=== PATIENT | female | born 1985 | race African-American/Black ===

== ENCOUNTER 2018-10-01 15:13 | Emergency (ER) | payer OTHER ==
[~2018-10-01] VITALS: Ht 162.6 cm; Wt 73.6 kg
[2018-10-01 15:47] LABS: BASO % 0.5 % (0.0-1.0); EOS # 0.1 10^3/uL (0.0-0.50); HEMATOCRIT 39.3 % (36.0-47.0); HEMOGLOBIN 13.8 g/dl (12.0-15.5); LYMPH # 2.2 10^3/uL (1.5-4.5); LYMPH % 35.7 % (24.0-44.0); MEAN CORPUSCULAR HEMOGLOBIN 34.8 pg (27.0-33.0); MEAN CORPUSCULAR HGB CONC 35.1 g/dl (32.0-36.5); MEAN CORPUSCULAR VOLUME 99.2 fl (80.0-96.0); MONO # 0.6 10^3/uL (0.0-0.8); MONO % 9.6 % (0.0-5.0); NEUTROPHILS # 3.3 10^3/uL (1.8-7.7); PLATELET COUNT, AUTOMATED 200 10^3/uL (150-450); RED BLOOD COUNT 3.96 10^6/uL (4.00-5.40); WHITE BLOOD COUNT 6.3 10^3/uL (4.0-10.0)
[2018-10-01 16:18] LABS: ALBUMIN 4.1 GM/DL (3.2-5.2); ALT/SGPT 20 U/L (12-78); BILIRUBIN,DIRECT 0.1 MG/DL (0.0-0.2); BILIRUBIN,TOTAL 0.3 MG/DL (0.2-1.0); BLOOD UREA NITROGEN 19 MG/DL (7-18); CALCIUM LEVEL 9.2 MG/DL (8.5-10.1); CARBON DIOXIDE LEVEL 27 MEQ/L (21-32); CHLORIDE LEVEL 107 MEQ/L (98-107); CREATININE FOR GFR 1.08 MG/DL (0.55-1.30); GLOMERULAR FILTRATION RATE > 60.0 (>60); GLUCOSE, FASTING 83 MG/DL (70-100); LIPASE 180 U/L (73-393); POTASSIUM SERUM 4.1 MEQ/L (3.5-5.1); SODIUM LEVEL 140 MEQ/L (136-145); TOTAL PROTEIN 7.4 GM/DL (6.4-8.2)
[2018-10-01] MEDS ORDERED: IBUP1TAB7 PO (16:18)
[2018-10-01] MEDS ORDERED: ISOVUE-370 76% 100ML VIAL (Q9967) As Ordered ONE (17:28)
[2018-10-01] MEDS ORDERED: KETOROLAC 30 MG/ML VIAL (J1885) IV ONE (17:30)
[2018-10-01] MEDS ORDERED: ONDANSETRON 4MG/2ML VIAL (J2405) IV ONE (17:30)
[2018-10-01] MEDS ORDERED: NS 1,000 ML IV ONE (17:45)
--- NOTE | 2018-10-01 18:44 | REPVR ---
EXAM: US Pelvis Complete, Transabdominal EXAM DATE/TIME: 10/01/2018 5:45 PM CLINICAL HISTORY: 33 years old, female; Pelvic pain; Additional info: Right pelvic pain and cramping TECHNIQUE: Imaging protocol: Real-time transabdominal pelvic ultrasound with image documentation. Complete exam. COMPARISON: No relevant prior studies available. FINDINGS: Uterus/cervix: The uterus measures 7.5 x 3.1 x 4.7 cm. Endometrial stripe measures 6 mm. Right adnexa: The right ovary measures 3.8 x 3.1 x 3.2 cm and contains a follicle with a few internal echoes. A follicle in the right ovary contains a few internal echoes and measures approximately 1.9 cm in maximum diameter. Blood flow seen in the right ovary on color Doppler examination. Left adnexa:The left ovary measures 3 x 1.9 x 2.3 cm. Blood flow seen in the left ovary on color Doppler examination. Free fluid: Small amount of free fluid seen in the posterior cul-de-sac. Bladder: Normal. IMPRESSION: 1.9 cm complex follicle in the right ovary which may represent a corpus luteum cyst. This is within the range of normal for a menstruating female. Electronically signed by: Lashawn Velez On 10/01/2018 18:44:14 PM
--- NOTE | 2018-10-01 18:49 | REPVR ---
EXAM: CT Abdomen and Pelvis With Contrast EXAM DATE/TIME: 10/01/2018 5:59 PM CLINICAL HISTORY: 33 years old, female; Abdominal pain; Localized; Right lower quadrant (rlq); Additional info: Rlq pain, RO appendicitis TECHNIQUE: Imaging protocol: Axial computed tomography images of the abdomen and pelvis with intravenous contrast. Coronal and sagittal reformatted images were created and reviewed. Radiation optimization: All CT scans at this facility use at least one of these dose optimization techniques: automated exposure control; mA and/or kV adjustment per patient size (includes targeted exams where dose is matched to clinical indication); or iterative reconstruction. 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 No mass. Gallbladder and bile ducts: Normal. No calcified stones. No ductal dilation. Pancreas: Normal. No ductal dilation. Spleen: Normal. No splenomegaly. Adrenals: Normal. No mass. Kidneys and ureters: 7 mm simple cyst in the midportion of the right kidney posteriorly. Stomach and bowel: Normal. No obstruction. No mucosal thickening. Appendix: The appendix is normal. Intraperitoneal space: Small amount of free fluid noted in the posterior cul-de-sac. Vasculature: Normal. No abdominal aortic aneurysm. Lymph nodes: Normal. No enlarged lymph nodes. Bladder: Unremarkable as visualized. Reproductive: 2.5 cm low-density lesion in the right ovary corresponds to complex cyst seen on pelvic ultrasound. Rim enhancement suggest the presence of a corpus luteum cyst. Bones/joints: No acute fracture. No dislocation. Soft tissues: Unremarkable. IMPRESSION: 1. No acute findings the. The appendix is normal. 2. Corpus luteum cyst suggested in the right ovary. 3. Simple cyst in the right kidney. COMMENT: Consistent with the [employer]'s Incidental Findings Committee Report (J Am Miladys Radiol 2010): Unless the patient's specific circumstances suggest otherwise, any liver lesion 0.5 cm or less, any cystic kidney lesion less than 1.0 cm, and/or any adrenal lesion 1.0 cm or less not otherwise characterized in this report as possessing suspicious or indeterminate imaging features is/are highly likely to be benign and do not require follow-up imaging or biopsy. Electronically signed by: Lashawn Velez On 10/01/2018 18:48:56 PM
[2018-10-01] MEDS ORDERED: ZOFR8TAB24 PO (18:57)
[2018-10-01 19:10] VITALS: BP 130/72
== END 2018-10-01 19:16 | disposition home or self-care (01) ==
LOC: M ED 15:13
DX: N83.01 Follicular cyst of right ovary (principal); N28.1 Cyst of kidney, acquired; R11.10 Vomiting, unspecified; R19.7 Diarrhea, unspecified; Z87.440 Personal history of urinary (tract) infections; F17.210 Nicotine dependence, cigarettes, uncomplicated
CPT/HCPCS: 74177; 76856; 80048; 80076; 81001; 83690; 84702; 85025; 96374; 96375; 99284; J1885; J2405; Q9967

== ENCOUNTER 2019-12-05 14:23 | Emergency (ER) | payer OTHER ==
[~2019-12-05] VITALS: Ht 162.6 cm; Wt 75.0 kg
[~2019-12-05 14:23] MED LIST: IBUP1TAB7 PO; ZOFR8TAB24 PO
[2019-12-05] MEDS ORDERED: CHAN1PAK13 PO (14:39)
--- NOTE | 2019-12-05 15:27 | REPVR ---
PROCEDURE INFORMATION: Exam: XR Chest, 1 View Exam date and time: 12/05/2019 3:05 PM Age: 34 years old Clinical indication: Shortness of breath; Chest pain; Type not specified; Additional info: Chest pain, SOB TECHNIQUE: Imaging protocol: XR of the chest Views: 1 view. COMPARISON: No relevant prior studies available. FINDINGS: Tubes, catheters and devices: External monitoring devices present. Lungs: Unremarkable. No consolidation. Pleural space: Unremarkable. No pleural effusion. No pneumothorax. Heart/Mediastinum: Unremarkable. No cardiomegaly. Bones/joints: Unremarkable. IMPRESSION: No acute findings Electronically signed by: Lashawn Velez On 12/05/2019 15:27:29 PM
[2019-12-05 15:29] LABS: BASO % 0.4 % (0.0-1.0); EOS # 0.1 10^3/uL (0.0-0.5); EOS % 1.1 % (0.0-3.0); HEMATOCRIT 38.3 % (36.0-47.0); HEMOGLOBIN 13.6 g/dl (12.0-15.5); LYMPH # 1.7 10^3/uL (1.5-5.0); LYMPH % 34.9 % (24.0-44.0); MEAN CORPUSCULAR HEMOGLOBIN 34.5 pg (27.0-33.0); MEAN CORPUSCULAR HGB CONC 35.5 g/dl (32.0-36.5); MEAN CORPUSCULAR VOLUME 97.2 fl (80.0-96.0); MONO # 0.5 10^3/uL (0.0-0.8); MONO % 10.1 % (0.0-5.0); NEUTROPHILS # 2.5 10^3/uL (1.5-8.5); NEUTROPHILS % 53.3 % (36.0-66.0); PLATELET COUNT, AUTOMATED 231 10^3/uL (150-450); RED BLOOD COUNT 3.94 10^6/uL (4.00-5.40); WHITE BLOOD COUNT 4.7 10^3/uL (4.0-10.0)
[2019-12-05 15:52] LABS: BLOOD UREA NITROGEN 13 MG/DL (7-18); CALCIUM LEVEL 9.5 MG/DL (8.5-10.1); CARBON DIOXIDE LEVEL 28 MEQ/L (21-32); CHLORIDE LEVEL 108 MEQ/L (98-107); CK-MB VALUE MASS < 1.0 NG/ML (<3.6); CPK CREATINE PHOSPHOKINASE 151 U/L (26-192); CREATININE FOR GFR 0.89 MG/DL (0.55-1.30); GLOMERULAR FILTRATION RATE > 60.0 (>60); GLUCOSE, FASTING 91 MG/DL (70-100); MB/CK RELATIVE INDEX 0.66 (< OR =4); POTASSIUM SERUM 4.1 MEQ/L (3.5-5.1); SODIUM LEVEL 142 MEQ/L (136-145); TROPONIN I < 0.02 NG/ML (< 0.10)
[2019-12-05] MEDS ORDERED: NS 1,000 ML IV ONE (16:00)
[2019-12-05] MEDS ORDERED: FAMOTIDINE 20 MG TAB PO ONE (16:15)
[2019-12-05] MEDS ORDERED: ISOVUE-370 76% 100ML VIAL As Ordered ONE (16:21)
--- NOTE | 2019-12-05 17:17 | REPVR ---
PROCEDURE INFORMATION: Exam: CT Angiography Chest With Contrast Exam date and time: 12/05/2019 4:54 PM Age: 34 years old Clinical indication: Chest pain; Type not specified; Additional info: Chest pain, SOB, elevated d-dimer TECHNIQUE: Imaging protocol: Computed tomographic angiography of the chest with intravenous contrast. 3D rendering (Not supervised by radiologist): MIP and/or 3D reconstructed images were created by the technologist. Radiation optimization: All CT scans at this facility use at least one of these dose optimization techniques: automated exposure control; mA and/or kV adjustment per patient size (includes targeted exams where dose is matched to clinical indication); or iterative reconstruction. Contrast material: ISOVUE 370; Contrast volume: 100 ml; Contrast route: INTRAVENOUS (IV); COMPARISON: CR PORTABLE CHEST X-RAY 12/05/2019 2:52 PM FINDINGS: Pulmonary arteries: Normal. No pulmonary emboli. Aorta: Unremarkable. No aortic aneurysm. No aortic dissection. Lungs: Unremarkable. No consolidation. No masses. Pleural space: Unremarkable. No pneumothorax. No pleural effusion. Heart: Unremarkable. No cardiomegaly. No pericardial effusion. Lymph nodes: Unremarkable. No enlarged lymph nodes. Bones/joints: Non-specific area of sclerosis noted along the superior aspect of the left 6th rib Soft tissues: Unremarkable. IMPRESSION: 1. No acute pulmonary embolism. 2. Nonspecific area of sclerosis noted along the superior aspect of the left lateral 6th rib. This could be related to previous trauma. Electronically signed by: Lashawn Velez On 12/05/2019 17:17:37 PM
[2019-12-05] MEDS ORDERED: ALPRAZolam 0.25 MG TAB PO ONE (18:00)
[2019-12-05 18:45] VITALS: BP 111/67
[2019-12-05 18:57] LABS: CK-MB VALUE MASS < 1.0 NG/ML (<3.6); CPK CREATINE PHOSPHOKINASE 130 U/L (26-192); MB/CK RELATIVE INDEX 0.77 (< OR =4); TROPONIN I < 0.02 NG/ML (< 0.10)
--- NOTE | 2019-12-06 12:04 | ECGEPIP ---
[facility] - ED Test Date: 2019-12-05 Pat Name: KRIS SERRANO Department: Room: - Gender: Female Fiberglass Laminator: : 1985 Requested By: AIMEE FREEMAN PA-C. Order Number: [id number] Reading MD: Jj Fuentes Measurements Intervals [place]ba Rate: 64 P: 22 CT: 192 QRS: 21 QRSD: 85 T: 29 QT: 360 QTc: 373 Interpretive Statements SINUS RHYTHM NSTTW ABNORMALITIES NO PRIORS FOR COMPARISON Electronically Signed on 12-06-2019 12:03:55 EDT by Jj Fuentes
== END 2019-12-05 19:24 | disposition home or self-care (01) ==
LOC: EDBD 14:23 → M ED 14:23
DX: R10.9 Unspecified abdominal pain (principal); F41.9 Anxiety disorder, unspecified
CPT/HCPCS: 71045; 71275; 80048; 82550; 82553; 84484; 84702; 85025; 85379; 93005; 96360; 96361; 99285; Q9967

== ENCOUNTER 2020-10-05 06:11 | Day surgery (SDC) | payer OTHER ==
[~2020-10-05] VITALS: Ht 162.6 cm; Wt 68.0 kg
[~2020-10-05 06:11] MED LIST changes: +ACETAMINOPHEN 650 MG SUPP PR ONE; +CHAN1PAK13 PO; +LR 1,000 ML IV ONE; +SODIUM CHLORIDE 0.9% 1000ML IV ONE
[2020-10-05 06:42] LABS: HEMATOCRIT 39.3 % (36.0-47.0); HEMOGLOBIN 13.8 g/dl (12.0-15.5); MEAN CORPUSCULAR HEMOGLOBIN 35.6 pg (27.0-33.0); MEAN CORPUSCULAR HGB CONC 35.1 g/dl (32.0-36.5); MEAN CORPUSCULAR VOLUME 101.3 fl (80.0-96.0); PLATELET COUNT, AUTOMATED 206 10^3/uL (150-450); RED BLOOD COUNT 3.88 10^6/uL (4.00-5.40); WHITE BLOOD COUNT 4.4 10^3/uL (4.0-10.0)
[2020-10-05] MEDS ORDERED: MIDAZOLAM INJ 2MG/2ML VIAL (J2250 PER 1MG) As Ordered ONE (07:08)
[2020-10-05] MEDS ORDERED: fentaNYL 100 MCG/2 ML INJECTION (J3010) As Ordered ONE ×2 (07:09→08:47)
[2020-10-05] MEDS ORDERED: METHYLENE BLUE 0.5% (5MG/ML) 10 ML AMP (PROVAYBLUE) As Ordered ONE (07:10)
[2020-10-05] MEDS ORDERED: ACETAMINOPHEN 650 MG SUPP As Ordered ONE (07:10)
[2020-10-05] MEDS ORDERED: BUPIVACAINE HCL 0.25% 10ML VIAL As Ordered ONE (07:10)
[2020-10-05] MEDS ORDERED: ROCURONIUM BROMIDE 50 MG/5 ML VIAL As Ordered ONE (07:11)
[2020-10-05] MEDS ORDERED: LIDOCAINE 2% 100MG/5ML SDV (FOR ANES.) As Ordered ONE (07:12)
[2020-10-05] MEDS ORDERED: dexameTHASONE 4 MG/ML 1ML VIAL (J1100 PER 1MG) As Ordered ONE (07:12)
[2020-10-05 07:17] LABS: BLOOD UREA NITROGEN 20 MG/DL (7-18); CALCIUM LEVEL 8.9 MG/DL (8.5-10.1); CARBON DIOXIDE LEVEL 28 MEQ/L (21-32); CHLORIDE LEVEL 111 MEQ/L (98-107); CREATININE FOR GFR 0.84 MG/DL (0.55-1.30); GLOMERULAR FILTRATION RATE > 60.0 (>60); GLUCOSE, FASTING 89 MG/DL (70-100); HCG, SERUM QUANTITATIVE < 1.0 MIU/ML; POTASSIUM SERUM 4.8 MEQ/L (3.5-5.1); SODIUM LEVEL 143 MEQ/L (136-145)
[2020-10-05] MEDS ORDERED: KETOROLAC 60MG 2ML VIAL As Ordered ONE (07:47)
[2020-10-05] MEDS ORDERED: METOCLOPRAMIDE INJ 10MG/2ML VIAL (J2765 PER 1) As Ordered ONE (07:47)
[2020-10-05] MEDS ORDERED: ONDANSETRON 4MG/2ML VIAL As Ordered ONE (07:47)
[2020-10-05] MEDS ORDERED: ACETAMINOPHEN 1000MG 100ML IV BTL (OFIRMEV) (J0131 PER 10MG) As Ordered ONE (07:47)
[2020-10-05] MEDS ORDERED: propofoL 200 MG/20 ML VIAL As Ordered ONE (07:47)
[2020-10-05] MEDS ORDERED: SUGAMMADEX SODIUM 500 MG/5 ML VIAL (BRIDION) As Ordered ONE (08:05)
[2020-10-05] MEDS ORDERED: ePHEDrine SULFATE 25 MG/5 ML(5MG/ML) SYRINGE As Ordered ONE (08:13)
[2020-10-05] MEDS ORDERED: ONDANSETRON 4MG/2ML VIAL IV PRN (09:40)
[2020-10-05] MEDS ORDERED: METOCLOPRAMIDE INJ 10MG/2ML VIAL (J2765 PER 1) IV PRN (09:40)
[2020-10-05] MEDS ORDERED: LR 1,000 ML IV SCH (09:40)
[2020-10-05] MEDS ORDERED: fentaNYL 100 MCG/2 ML INJECTION (J3010) IV PRN (09:40)
[2020-10-05] MEDS: HYDROMORPHONE HCL 0.5 MG/ 0.5 ML SYRINGE (J1170 PER 1) IV PRN ×2 (09:42→09:47)
[2020-10-05] MEDS: PERCOCET 5MG/325MG TAB PO PRN ×2 (09:43→10:14)
[2020-10-05 11:55] VITALS: BP 110/65
== END 2020-10-05 12:00 | disposition home or self-care (01) ==
LOC: M SDC 06:11
PROVIDERS: ATTEND Obstetrics & Gynecology
DX: N94.10 Unspecified dyspareunia (principal); N88.2 Stricture and stenosis of cervix uteri; N97.9 Female infertility, unspecified; F17.218 Nicotine dependence, cigarettes, with other nicotine-induced disorders; Z79.899 Other long term (current) drug therapy
CPT/HCPCS: 36415; 58350; 58558; 58660; 80048; 84702; 85027; 88305; J0131; J1100; J1170; J1885; J2250; J2405; J2765; J3010; Q9968

== ENCOUNTER → 2021-01-07 | Outpatient (CLI) | payer OTHER ==
[~2021-01-07] MED LIST changes: -ACETAMINOPHEN 650 MG SUPP PR ONE; -LR 1,000 ML IV ONE; -SODIUM CHLORIDE 0.9% 1000ML IV ONE
--- NOTE | 2021-01-07 14:05 | REP ---
INDICATION: 5-6 WEEKS PREG, HIGH RISK ECTOPIC. COMPARISON: None. TECHNIQUE: Transvesical and transvaginal imaging FINDINGS: The uterus measures 6.7 x 4.1 x 5.1 cm. Within the uterus there is an anechoic structure with increased echoes surrounding it consistent with a decidual reaction. The mean gestational sac measurement is consistent with a 5 week 2 day gestational age. Doppler of the gestational sac shows no cardiac activity. There is no echogenic material in the gestational sac that would be consistent with a pole of this time. There is no yolk sac. Adjacent to the gestational sac there is a 0.7 x 1.6 mm sized crescent-shaped area of decreased echoes. Right ovary measures 3.3 x 1.5 x 2.1 cm and is within normal limits with an RI 0.37. The left ovary measures 2 x 2.2 x 2.5 cm. Within the left adnexa there is a 2.5 cm sized complex appearing structure. The left ovarian RI is 0.5 There is no free fluid. IMPRESSION: 1. Evidence of a 5 week 2 day gestational sac measurement as described above. The small area of decreased echoes adjacent to the developing chorion is secondary to either non chorionic fusion during this early stage of or possibly a small subchorionic hemorrhage. This should be correlated clinically. 2. Complex structure in the left adnexa as described above. This could in fact be arising from the ovary representing a hemorrhagic corpus luteum. Close follow-up is recommended. 3. Other findings as described above. <Electronically signed by Taj Mascorro > 01/07/21 [id number]
== END ==
LOC: M RAD 13:13
PROVIDERS: ATTEND Obstetrics & Gynecology
DX: Z36.89 Encounter for other specified antenatal screening (principal); Z3A.01 Less than 8 weeks gestation of pregnancy